=== PATIENT | male | born 1960 | race Caucasian/White ===

== ENCOUNTER 2017-01-07 14:06 | Emergency (ER) | payer OTHER ==
[2017-01-07 14:11] VITALS: BP 132/85; PULSE 104; TEMP 98.1; BMI 29.2
--- NOTE | 2017-01-07 15:38 | PDOC ---
History of Present Illness - General Chief Complaint: Injury Stated Complaint: THUMB LACERATION Time Seen by Provider: 01/07/17 15:04 History Source: Patient Exam Limitations: No Limitations - History of Present Illness Initial Comments: 01/07/17 16:04 Chief complaint: Left thumb laceration History Of present illness: Patient is a 56-year-old male with no significant medical history here today after cutting his left dorsal thumb on a grinder lap for medical after work today. Patient reports that he does work on his own after he finishes his normal hours at work and was using the grinder lap when he cut his left dorsal thumb. Patient good sensation of his left thumb. Pt. is unsure if his tetanus is up to date. 01/07/17 16:57 01/07/17 17:02 01/07/17 18:00 01/07/17 18:01 Occurred: reports: just prior to arrival Severity: reports: severe (left thumb laceration with 3/4 avulsion of nail and skin avulsed ) Pain Location: reports: upper extremity (left thumb laceration ) Method of Injury: Yes: other (cut by electric saw at work left6 thumb ) Modifying Factors: improves with: other (direct pressure left thumb laceration) Loss of Consciousness: no loss of consciousness Associated Symptoms (Fall): denies symptoms Past History - Past Medical History Allergies/Adverse Reactions: Allergies Allergy/AdvReac Type Severity Reaction Status Date / Time No Known Allergies Allergy Verified 01/07/17 14:11 Home Medications: Ambulatory Orders Aspirin [ASA -] 81 mg PO DAILY 01/07/17 Cephalexin Monohydrate [Keflex -] 500 mg PO Q6H #40 capsule MDD 4 tabs 01/07/17 Oxycodone HCl/Acetaminophen [Percocet 5-325 mg Tablet] 1 tab PO Q6H PRN #12 tablet MDD 4 01/07/17 Other medical history: denies - Psycho/Social/Smoking Cessation Hx Suicidal Ideation: No Smoking History: Never smoked Information on smoking cessation initiated: No Hx Alcohol Use: No Drug/Substance Use Hx: No Substance Use Type: None Review of Systems - Review of Systems Able to Perform ROS?: Yes Constitutional: No: Symptoms Reported HEENTM: No: Symptoms Reported Respiratory: No: Symptoms reported Cardiac (ROS): No: Symptoms Reported ABD/GI: No: Symptoms Reported : No: Symptoms Reported Musculoskeletal: No: Symptoms Reported Integumentary: Yes: Other (left thumb laceration avulsed skin from distal dorsal aspect to over pip jt with 3/4 of nail avulsion) Neurological: No: Symptoms reported *Physical Exam - Vital Signs Last Vital Signs Temp Pulse Resp BP Pulse Ox 98.1 F 104 H 19 132/85 99 01/07/17 14:10 01/07/17 14:10 01/07/17 14:10 01/07/17 14:10 01/07/17 14:10 - Physical Exam General Appearance: Yes: Appropriately Dressed Comments:: 01/07/17 15:53 left radial pulse 4 + 01/07/17 16:09 Extremity: positive: Normal Capillary Refill, Normal Inspection (left dip, pip, mcp thumb ), Normal Range of Motion (is able to flex left thumb at pip and mcp jt) Integumentary: positive: Other (avulsion laceration left dorsal thumb from distal aspect dorsally to proximal phalanx with 3/4 nail avusion, remaining 1/4 nail distally laterally) Neurologic: positive: Alert, Normal Response, Respond to painful stimul, Responsive. negative: Numbness, Sensory Deficit (left thumb ) Procedures - Consent Consent obtained: From Patient - Laceration/Wound Repair Left Distal Dorsal 1st digit Finger Wound Length: 5.0 to 7.5 cm Wound Explored: clean Wound's Depth, Shape: nail-avulsed (3/4 left thumb nail, avulsion laceration left dorsal thumb from distal aspect to proximal phalanx ) Irrigated w/ Saline: Yes Betadine Prep: Yes Sterile Dressing Applied: Yes (xeroform one layer applied) Splint Applied: Yes (left thumb ) Sling Applied: No Progress: 01/07/17 17:01 Cleanse wound thoroughly with Betadine and copious amounts of normal saline 0.9% . Dried and single layer of Xeroform applied per instructions from Dr. Roach. Stephanie and Alex applied to left thumb. Has range of motion of the distal aspect of the finger at the PIP joint and MCP joint, good sensation of finger. ED Treatment Course - LABORATORY CBC & Chemistry Diagram: 01/07/17 16:11 01/07/17 16:11 Medical Decision Making - Medical Decision Making 01/07/17 17:02 01/07/17 17:02 Patient is a 56-year-old male with no significant medical history here today after cutting his left dorsal thumb on a grinder lap for medical after work today. Patient reports that he does work on his own after he finishes his normal hours at work and was using the grinder lap when he cut his left dorsal thumb. Patient good sensation of his left thumb. Pt. is up to date with tetanus. Pt. 's called from [place] she reports that he is supposed to take metformin but does not and she does not think his Tetanus is up to date Thumb avulsion laceration to dorsal aspect thumb distal finger to proximal phalanx with nail avulsion three quarters Plan: Called Dr. Roach he will see patient on 01/09/2017 in his office patient will need flap repair and to call his office and come in on 01/09/2017 He instructed me his wound thoroughly with Betadine and normal saline 0.9% dry wound and apply a single layer of Xeroform with Telfa and Alex IV insert Unasyn 3 g IV given Percocet 5 mg/325 mg by mouth now then every 6 hours as needed for severe pain Keflex 500 mg every 6 hours for 10 days *DC/Admit/Observation/Transfer Diagnosis at time of Disposition: Laceration of thumb without foreign body with damage to nail Qualifiers: Encounter type: initial encounter Laterality: left Qualified Code(s): S61.112A - Laceration without foreign body of left thumb with damage to nail, initial encounter - Discharge Dispostion Disposition: HOME Condition at time of disposition: Stable - Prescriptions Prescriptions: Cephalexin Monohydrate [Keflex -] 500 mg PO Q6H #40 capsule MDD 4 tabs Oxycodone HCl/Acetaminophen [Percocet 5-325 mg Tablet] 1 tab PO Q6H PRN #12 tablet MDD 4 PRN Reason: Severe Pain - Referrals Referrals: Jeanne Saucedo [Primary Care Provider] - Tavo Roach MD [Staff Physician] - - Patient Instructions Additional Instructions: General Roach's office on 01/09/2017 between 8 and 9:00 tell that you were seen here today in Dr. Roach wanted to to follow up in his office on 01/09/2017 Do not wet left thumb wound keep dressing on and splint on Return to emergency room if any fever redness around wound or to left hand Patient voiced understanding of discharge instructions and all questions were answered
[2017-01-07] MEDS ORDERED: OXYCODONE/APAP 5/325MG COMBO TABLET PO ONE (15:50)
[2017-01-07] MEDS ORDERED: OXYCODONE/APAP 5/325MG COMBO TABLET ONE (15:57)
[2017-01-07] MEDS ORDERED: AMPICILLIN NA/SULBACTAM NA 3 GM in SODIUM CHLORIDE 100 ML IVPB ONE (16:04)
[2017-01-07] MEDS ORDERED: AMPICILLIN NA/SULBACTAM NA 1.5 GM VIAL ONE (16:18)
[2017-01-07 16:47] LABS: CALCIUM 9.4 mg/dL (8.5-10.1); CREATININE 1.1 mg/dL (0.7-1.3)
[2017-01-07 17:00] LABS: BASOPHIL 0.4 % (0-2.0); EOSINOPHIL 0.4 % (0-4.5); MCH 30.3 pg (25.7-33.7); MCHC 33.7 g/dl (32.0-35.9); MEAN CELL VOLUME 89.8 fl (80-96); MEAN PLT VOLUME 9.5 fl (7.5-11.1); NEUTROPHILS 79.4 % (42.8-82.8); PLATELET COUNT 312 K/MM3 (134-434); RDW 13.9 % (11.9-15.9); WHITE BLOOD COUNT 13.8 K/mm3 (4.0-10.0)
[2017-01-07] MEDS ORDERED: DIPHTH,PERTUSS(ACELL),TET 0.5 ML DISP.SYRIN IM ONE (17:28)
== END 2017-01-07 18:01 | disposition home or self-care (01) ==
LOC: JERFT 14:06
PROC: 3E0234Z Introduction of Serum, Toxoid and Vaccine into Muscle, Percutaneous Approach (ICD-10-PCS; principal; 2017-01-07)
PROC: 3E03329 Introduction of Other Anti-infective into Peripheral Vein, Percutaneous Approach (ICD-10-PCS; 2017-01-07)
DX: S61.112A Laceration without foreign body of left thumb with damage to nail, initial encounter (principal); W29.8XXA Contact with other powered hand tools and household machinery, initial encounter; Y93.89 Activity, other specified; Y92.524 Gas station as the place of occurrence of the external cause; Y99.0 Civilian activity done for income or pay
CPT/HCPCS: 36415; 73140-TC-LT; 80048; 85025; 90471; 90715; 96365; 99281-25